=== PATIENT | male | born 1960 | race Caucasian/White ===

== ENCOUNTER → 2016-11-06 | Outpatient (CLI) | payer BC ==
[~2016-11-06] MED LIST: ASPI81TA28 PO; CETI10TA84 PO; HYDR-5688 PO; LOSA1TAB PO; MULT-506 PO; SIMV10TA2 PO
[2016-11-06 13:25] LABS: BLOOD UREA NITROGEN 21 mg/dl (7-18); BUN/CREATININE RATIO 26.4 (10-20); CALCIUM 8.4 mg/dl (8.5-10.1); CARBON DIOXIDE 29 mmol/L (21-32); CHLORIDE 104 mmol/L (98-107); CHOLESTEROL 158 mg/dl (0-200); CREATININE 0.78 mg/dl (0.60-1.40); GLUCOSE 92 mg/dl (70-99); POTASSIUM 3.9 mmol/L (3.5-5.1); SODIUM 141 mmol/L (136-145)
[2016-11-06 13:30] LABS: ALB/GLOB RATIO 0.8 (0.9-2); ALKALINE PHOSPHATASE 58 U/L (45-117); ALT/SGPT 21 U/L (12-78); AST/SGOT 14 U/L (15-37); CHOLESTEROL/HDL RATIO 2.5; HDL CHOLESTEROL 62 mg/dl; LDL CHOLESTEROL CALCULATED 84 mg/dl; TRIGLYCERIDES 59 mg/dl (0-150); VERY LOW DENSITY LIPOPROT CALC 12 mg/dl
== END | disposition home or self-care (01) ==
LOC: C.LABBFT 07:30
PROVIDERS: ATTEND Family Medicine
DX: E78.5 Hyperlipidemia, unspecified (principal); Z12.5 Encounter for screening for malignant neoplasm of prostate; I10 Essential (primary) hypertension

== ENCOUNTER → 2016-11-18 | Outpatient (CLI) | payer BC ==
[2016-11-18 15:25] LABS: LYME DISEASE AB IGG NEG (NEG)
[2016-11-18 15:28] LABS: LYME DISEASE AB IGM NEG (NEG)
== END | disposition home or self-care (01) ==
LOC: C.LABBFT 07:41
PROVIDERS: ATTEND Family Medicine
DX: M25.561 Pain in right knee (principal); T14.8 Other injury of unspecified body region; W57.XXXA Bitten or stung by nonvenomous insect and other nonvenomous arthropods, initial encounter

== ENCOUNTER → 2016-12-02 | Outpatient (CLI) | payer BC ==
--- NOTE | 2016-12-02 17:38 | DIAGNOSTIC IMAGING REPORT ---
ULTRASOUND RIGHT LOWER EXTREMITY VENOUS CLINICAL HISTORY: Right lower extremity edema. COMPARISON STUDY: No priors. TECHNIQUE: Real-time, grayscale, and color Doppler sonography of the deep veins of the right lower extremity was performed from the inguinal crease to the calf. Compression and augmentation were utilized. FINDINGS: There is no sonographic evidence of deep venous thrombosis identified in the right lower extremity. The common femoral, superficial femoral, and popliteal veins are patent and normally compressible. The greater saphenous vein and the profunda femoris vein at the junction with the common femoral vein are clear. The visualized calf veins are patent. A minimally complex popliteal cyst measures 3.2 x 0.9 x 2.5 cm. There are 2 pockets of fluid seen within the posterior calf musculature. A more simple appearing pocket is seen superiorly and measures 5.5 x 0.4 x 1.6 cm. A more complex collection is seen posteriorly and measures 3.3 x 0.7 x 2.5 cm. IMPRESSION: 1. There is no sonographic evidence of deep venous thrombosis identified in the right lower extremity. 2. Small popliteal cyst. 3. There are 2 pockets of fluid identified in the calf which appear to be intramuscular in location. This may represent resolving hematoma or possibly the sequelae of a ruptured Davis's cyst. Clinical correlation will be required and clinical follow-up to resolution is recommended. Electronically signed by: Dino Sanders M.D. 12/02/2016 5:36 PM Dictated Date/Time: 12/02/2016 5:33 PM
== END | disposition home or self-care (01) ==
LOC: C.ULTR 16:43
PROVIDERS: ATTEND Nurse Practitioner
DX: R60.0 Localized edema (principal)

== ENCOUNTER → 2016-12-20 | Outpatient (CLI) | payer BC ==
[2016-12-20 14:48] LABS: BASO % 0.4 %; BASO ABS # 0.03 K/uL (0-0.2); COMPLETE YES; EOS % 2.6 %; HEMATOCRIT 40.8 % (42-52); IG% 0.3 %; LYMPH ABS # 1.78 K/uL (1.2-3.4); MEAN CELL VOLUME 87.4 fL (80-100); MEAN CORPUSCULAR HEMOGLOBIN 29.3 pg (25-34); MEAN CORPUSCULAR HGB CONC 33.6 g/dl (32-36); MEAN PLATELET VOLUME 9.4 fL (7.4-10.4); MONO % 9.9 %; NEUT % 63.8 %; PLATELET COUNT 370 K/uL (130-400); RED BLOOD COUNT 4.67 M/uL (4.7-6.1); WHITE BLOOD COUNT 7.74 K/uL (4.8-10.8)
[2016-12-20 15:10] LABS: BLOOD UREA NITROGEN 15 mg/dl (7-18); BUN/CREATININE RATIO 17.5 (10-20); CARBON DIOXIDE 33 mmol/L (21-32); CHLORIDE 101 mmol/L (98-107); CREATININE 0.88 mg/dl (0.60-1.40); GLUCOSE 93 mg/dl (70-99); SODIUM 137 mmol/L (136-145)
== END | disposition home or self-care (01) ==
LOC: C.CPL 13:37
PROVIDERS: ATTEND Orthopaedic Surgery
DX: Z01.810 Encounter for preprocedural cardiovascular examination (principal); Z01.812 Encounter for preprocedural laboratory examination; S83.241D Other tear of medial meniscus, current injury, right knee, subsequent encounter; X58.XXXD Exposure to other specified factors, subsequent encounter

== ENCOUNTER → 2016-12-26 | Day surgery (SDC) | payer BC ==
[2016-12-20 10:47] VITALS: Ht 175.3 cm; Wt 82.5 kg
[~2016-12-26] VITALS: Ht 175.3 cm; Wt 82.5 kg
[~2016-12-26] MED LIST changes: +ATROPINE SULFATE 0.1 MG/ML 5ML SYR IV PRN; +CEFAZOLIN 2000 MG/60 ML D5W 60 ML IV SCH; +DEXAMETHASONE SOD INJ 4 MG/ML VIAL ONE; +EpHEDrine SULFATE INJ 50 MG/ML AMP IV PRN; +EpINEphrine INJ 1MG/ML AMP 1 MG/ML AMP ONE; +FENTANYL CITRATE INJ 50 MCG/1 ML 2 ML VIAL IV PRN; +FENTANYL CITRATE INJ 50 MCG/1 ML 2 ML VIAL ONE; +HYDROCODONE/ACETAMOPHEN 5/325MG TAB PO PRN; +HYDROmorphone INJ 1 MG/ML SYR IV PRN; +KETOROLAC TROMETHAMINE 30 MG/ML VIAL ONE; +LIDOCAINE HCL 2% 2 ML VIAL (20MG/ML) ONE; +MIDAZOLAM HCL 1 MG/ML 2ML VIAL ONE; +ONDANSETRON INJ 2 MG/ML 2 ML VIAL IV PRN; +ONDANSETRON INJ 2 MG/ML 2 ML VIAL ONE; +PROMETHAZINE HCL INJ 12.5 MG in SODIUM CHLORIDE 0.9% 50ML 50 ML IV PRN; +PROPOFOL IV EMULSION 10 MG/ML 20 ML VIAL IV ONE; +ROPIVACAINE 0.5% 5 MG/ML 30 ML VIAL ONE; +SODIUM CHLORIDE 0.9% 1000ML 1,000 ML IV SCH
--- NOTE | 2016-12-26 11:40 | History & Physical Bridge - [place] ---
H&P Re-Evaluation Bridge Note: I have examined the patient, reviewed the History & Physical and in the interval since the performance of the History & Physical I have noted the following changes of clinical significance: No changes noted
[2016-12-26] MEDS: LACTATED RINGER'S 1000ML 1,000 ML IV SCH ×2 (11:47→14:01)
--- NOTE | 2016-12-26 13:46 | Discharge Instructions-SurgCtr ---
Discharge Instructions Date of Service Dec 26, 2016. Visit Reason for Visit: Acute Meniscal Tear Medial Discharge Discharge Diagnosis / Problem: SAME ABOVE Discharge Goals Goal(s): Decrease discomfort, Improve function Medications Stopped Medications Name(s): Aspirin 81mg last dose 10 days ago Restart Stopped Medication(s): MAY RESTART 12/26/2016 Activity Recommendations Activity Limitations: as noted below Lifting Limitations: gradually increase as tolerated Shower/Bathe: tomorrow Anesthesia . Post Anesthesia Instructions: If you have had General Anesthesia or IV Sedation: * Do not drive today. * Resume driving when surgeon permits. * Do not make important decisions or sign legal documents today. * Call surgeon for: 1. Temperature elevations greater than 101 degrees F. 2. Uncontrollable pain. 3. Excessive bleeding. 4. Persistent nausea and vomiting. 5. Medication intolerance (nausea, vomiting or rash). * For nausea and vomiting use only clear liquids such as: tea, soda, bouillon until nausea subsides, then gradually increase diet as tolerated. * If you have any concerns or questions, call your surgeon's office. If physician is unavailable and it is an emergency, call 911 or go to the nearest emergency room. . Instructions / Follow-Up Instructions / Follow-Up MEDICATIONS: * Resume previous medications unless instructed otherwise by your surgeon. * Always take pain medication on a full stomach or with food to avoid upset stomach. * Do not drink alcohol or drive while taking narcotics. * Ibuprofen or Tylenol may be taken if narcotic not needed. SPECIAL CARE INSTRUCTIONS: __ None _X_ Keep extremity elevated and iced x 48 hours; apply ice 20-30 minutes 8-10 times/day. May remove at night. _X_ Crutches _X_ May discard when able __ Brace/Post-op shoe __ 24 hrs/day __ Remove at night _X_ Dressing __ Maintain until seen in office, may shower with plastic over site _X_ Remove dressings in 24-48 hours and then may shower _X_ Cover incisions with band-aids after showering __ Do not remove steri-strips Call physician if chills or temperature rises above 102 degrees or pain unrelieved by prescribed pain medications. Office [phone] Diet Recommendations Home Diet: no limitations Fluid Restriction: None Procedures Procedures Performed: Right Knee Arthroscopy With Partial Lateral Meniscectomy, Chondroplasty, And Evacuation Of Hematoma Pending Studies Studies pending at discharge: no Medical Emergencies . Who to Call and When: Medical Emergencies: If at any time you feel your situation is an emergency, please call 911 immediately. . Non-Emergent Contact Non-Emergency issues call your: Primary Care Provider Call Non-Emergent contact if: you have a fever, temperature is above 101.5 . . "Provider Documentation" section prepared by Edwar Wheeler. .
[2016-12-26 14:34] VITALS: TEMP 36.5
[2016-12-26 14:56] VITALS: BP 144/88; PULSE 69; O2SAT 99
--- NOTE | 2016-12-26 15:00 | Anesthesia Progress Nt - [facility] ---
Anesthesia Post Op Note Date & Time Dec 26, 2016 at 15:00 Vital Signs Pain Intensity: 5.0 Vital Signs Past 12 Hours Date Time Temp Pulse Resp B/P (MAP) Pulse Ox O2 Delivery O2 Flow Rate FiO2 12/26/16 14:56 69 16 144/88 (106) 99 Room Air 12/26/16 14:34 36.5 73 16 141/89 (106) 97 Room Air 12/26/16 14:16 36.6 68 13 12/26/16 14:16 68 13 150/97 97 12/26/16 14:11 68 13 97 12/26/16 14:11 69 13 12/26/16 14:10 153/102 12/26/16 14:06 70 17 12/26/16 14:06 71 17 100 12/26/16 14:05 143/96 12/26/16 14:01 64 12 12/26/16 14:01 64 12 100 12/26/16 14:00 152/94 12/26/16 13:56 68 18 12/26/16 13:56 68 18 100 12/26/16 13:55 133/97 12/26/16 13:51 63 11 100 12/26/16 13:51 63 11 12/26/16 13:50 148/100 12/26/16 13:47 36.5 63 14 137/94 100 Mask 6 12/26/16 13:46 63 12/26/16 13:46 63 137/94 99 12/26/16 11:20 37.0 75 16 141/88 (105) 96 Room Air Notes Mental Status: alert / awake / arousable, participated in evaluation Pt Amnestic to Procedure: Yes Nausea / Vomiting: adequately controlled Pain: adequately controlled Airway Patency, RR, SpO2: stable & adequate BP & HR: stable & adequate Hydration State: stable & adequate Anesthetic Complications: no major complications apparent
--- NOTE | 2016-12-26 15:05 | [facility] Post Operative Brief Note ---
Immediate Operative Summary Operative Date Dec 26, 2016. Pre-Operative Diagnosis Medial meniscus tear right knee Post-Operative Diagnosis Same as preop Procedure(s) Performed Right Knee Arthroscopy With Partial Lateral Meniscectomy, Chondroplasty, And Evacuation Of Hematoma Surgeon Dr. Cardenas Snagger Surgeon(s) Edwar Wheeler PA-C Estimated Blood Loss 5 mL Findings as above Specimens None Complication(s) None Disposition Recovery Room / PACU
--- NOTE | 2016-12-28 08:48 | OPERATIVE REPORT ---
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 PROCEDURE: Right knee diagnostic arthroscopy with chondroplasty, partial lateral meniscectomy and evacuation of hematoma from the right calf. SURGEON: Dr. Kenny Cardenas. MARKETING PERFORMANCE ANALYST: Doc Wheeler PA-C, whose assistance was necessary for positioning of the leg and helping with instrumentation. ANESTHESIA: General. COMPLICATIONS: None. CONDITION: Stable to PACU. INDICATIONS: Juanjose is a pleasant 56-year-old male who presented to my office with severe increase of right knee pain and significant swelling of his right calf. I got an MRI of the knee which showed a meniscal tear as well as what appeared to be a very large popliteal cyst that was communicating down along the medial head of the gastroc. It was read this way as well by radiology. He was having trouble ambulating and elected to undergo arthroscopy. OPERATION AND FINDINGS: On 12/26/2016 he arrived at [facility] for the above procedure. He was seen in the preoperative holding area and the operative extremity was identified and signed. He was given a preoperative antibiotic and taken back to the operating room, laid on the table in supine position and put under general anesthesia. The right knee was prepped and draped in sterile fashion. Time-out was done and the patient and operative extremity was properly identified. A scope was introduced in the lateral parapatellar portal. Diagnostic arthroscopy showed no cartilage damage within the trochlea or patella. There were no loose bodies in the suprapatellar pouch. The scope was brought into the medial compartment. There was grade 2 chondral changes off the distal medial femoral condyle. The medial meniscus appeared to be intact. A medial parapatellar portal was then made under direct visualization. A probe was used to probe the medial meniscus without evidence of tear. The scope was brought into the trochlea. ACL and PCL were intact. The scope was brought into the lateral compartment. There was tearing throughout the entire lateral meniscus. It appeared to be mostly degenerative type tears. The quality of the lateral meniscus was very poor. There was grade 4 chondral changes in the lateral femoral condyle. A shaver was used to remove the unstable pieces of meniscus back to stable margins. A shaver was also used to complete a chondroplasty of the distal lateral femoral condyle. The scope was then placed in the medial parapatellar portal. Repeat diagnostic arthroscopy showed no additional pathology. The scope was brought into the posterior aspect of the knee and significant time was spent doing everything I could to completely decompress the Davis cyst. Arthroscopic instruments were then removed from the knee. I could still feel a lot of tension in the medial gastroc so I decided to do a small incision to evacuate. A 2 cm incision was made over the medial head of the gastroc about 5 cm distal to the popliteal crease. Once the incision was made a large amount of hematoma and clotted blood was evacuated from the area. Time was spent ensuring complete evacuation of the hematoma. The calf then felt supple. The area was then irrigated and closed with nylon suture. Portal sites were closed with 3-0 nylon. The knee was then injected with 30 mL of ropivacaine and Toradol. He was then placed in a soft compressive dressing, extubated, transferred to a [facility] and taken to the postanesthesia care unit in stable condition. He tolerated the procedure well. I attest to the content of the Intraoperative Record and any orders documented therein. Any exception s are noted below.
== END | disposition home or self-care (01) ==
LOC: X.SURG 10:40
PROVIDERS: ATTEND Orthopaedic Surgery
DX: S83.281A Other tear of lateral meniscus, current injury, right knee, initial encounter (principal); S80.11XA Contusion of right lower leg, initial encounter; M94.261 Chondromalacia, right knee; X58.XXXA Exposure to other specified factors, initial encounter

== ENCOUNTER → 2017-02-03 | Outpatient (CLI) | payer BC ==
[~2017-02-03] MED LIST changes: -ATROPINE SULFATE 0.1 MG/ML 5ML SYR IV PRN; -CEFAZOLIN 2000 MG/60 ML D5W 60 ML IV SCH; -DEXAMETHASONE SOD INJ 4 MG/ML VIAL ONE; -EpHEDrine SULFATE INJ 50 MG/ML AMP IV PRN; -EpINEphrine INJ 1MG/ML AMP 1 MG/ML AMP ONE; -FENTANYL CITRATE INJ 50 MCG/1 ML 2 ML VIAL IV PRN; -FENTANYL CITRATE INJ 50 MCG/1 ML 2 ML VIAL ONE; -HYDROCODONE/ACETAMOPHEN 5/325MG TAB PO PRN; -HYDROmorphone INJ 1 MG/ML SYR IV PRN; -KETOROLAC TROMETHAMINE 30 MG/ML VIAL ONE; -LIDOCAINE HCL 2% 2 ML VIAL (20MG/ML) ONE; -MIDAZOLAM HCL 1 MG/ML 2ML VIAL ONE; -ONDANSETRON INJ 2 MG/ML 2 ML VIAL IV PRN; -ONDANSETRON INJ 2 MG/ML 2 ML VIAL ONE; -PROMETHAZINE HCL INJ 12.5 MG in SODIUM CHLORIDE 0.9% 50ML 50 ML IV PRN; -PROPOFOL IV EMULSION 10 MG/ML 20 ML VIAL IV ONE; -ROPIVACAINE 0.5% 5 MG/ML 30 ML VIAL ONE; -SODIUM CHLORIDE 0.9% 1000ML 1,000 ML IV SCH
[2017-02-03 12:15] LABS: BASO % 0.2 %; BASO ABS # 0.01 K/uL (0-0.2); COMPLETE YES; EOS % 1.1 %; HEMATOCRIT 41.6 % (42-52); IG% 0.3 %; LYMPH % 19.5 %; LYMPH ABS # 1.23 K/uL (1.2-3.4); MEAN CELL VOLUME 87.9 fL (80-100); MEAN CORPUSCULAR HEMOGLOBIN 28.5 pg (25-34); MEAN CORPUSCULAR HGB CONC 32.5 g/dl (32-36); MEAN PLATELET VOLUME 9.7 fL (7.4-10.4); MONO % 8.1 %; NEUT % 70.8 %; PLATELET COUNT 340 K/uL (130-400); RED BLOOD COUNT 4.73 M/uL (4.7-6.1)
[2017-02-03 12:33] LABS: ALT/SGPT 23 U/L (12-78); BLOOD UREA NITROGEN 23 mg/dl (7-18); BUN/CREATININE RATIO 32.1 (10-20); CALCIUM 8.7 mg/dl (8.5-10.1); CARBON DIOXIDE 29 mmol/L (21-32); CHLORIDE 103 mmol/L (98-107); CREATININE 0.73 mg/dl (0.60-1.40); GLUCOSE 98 mg/dl (70-99); POTASSIUM 4.2 mmol/L (3.5-5.1); SODIUM 137 mmol/L (136-145)
[2017-02-03 12:36] LABS: ALB/GLOB RATIO 0.9 (0.9-2); ALKALINE PHOSPHATASE 54 U/L (45-117); AST/SGOT 23 U/L (15-37)
[2017-02-06 22:16] LABS: ANA SCREEN NEGATIVE (NEGATIVE); BEEF CLASS 0; BEEF IGE <0.10 KU/L; CHOCOLATE CLASS 0; CHOCOLATE IGE <0.10 KU/L; CLAM CLASS 1; CLAM IGE 0.55 KU/L; CORN CLASS 2; CRAB CLASS 2; DNA ds CRITHIDIA NEGATIVE (NEGATIVE); EGG MIX CLASS 0; EGG MIX IGE <0.10 KU/L; LOBSTER CLASS 1; LOBSTER IGE 0.36 KU/L; PEANUT IGE 1.78 KU/L; PORK CLASS 0; PORK IGE <0.10 KU/L; Rheumatoid Factor 11 IU/mL (<14); SHRIMP CLASS 1; SOY CLASS 2; SOY IGE 1.34 KU/L; SSB Ab <1.0 NEG AI (<1.0 NEGATIVE); Scleroderma Ab <1.0 NEG AI (<1.0 NEGATIVE); Sm/RNP <1.0 NEG AI (<1.0 NEGATIVE); WHEAT CLASS 2; WHEAT IGE 1.57 KU/L
== END | disposition home or self-care (01) ==
LOC: C.LAB1850 10:13
PROVIDERS: ATTEND Internal Medicine Pulmonary Disease
DX: L50.3 Dermatographic urticaria (principal)